=== PATIENT | female | born 1965 | race American Indian/Alaskan Native ===

== ENCOUNTER 2018-12-27 06:35 | Emergency (ER) | payer MEDICAID, OTHER ==
[2018-12-27 06:37] VITALS: BMI 21.6
--- NOTE | 2018-12-27 07:21 | ED PDOC ---
Arrival/HPI - General Chief Complaint: Medical Clearance Time Seen by Provider: 12/27/18 07:01 Historian: Patient, Police - History of Present Illness Narrative History of Present Illness (Text): 12/27/18 07:15 53 year old female, with no significant past medical history, presents to the ED brought in by police for medical clearance. Patient was reportedly found by passengers sleeping at [facility] this morning. Patient states she missed her last train and was sleeping at the station waiting for the next one to arrive. She notes using heroin last night at 6 pm and boarding the train afterwards but reports getting off on the wrong station. Patient endorses using a walker at baseline and denies any fall or trauma. Patient denies any pain or any somatic complaints. She denies any fever, chills, night sweats, chest pain, shortness of breath, abdominal pain, constipations, diarrhea, nausea, vomiting or any other complaints. Patient denies any suicidal ideation or homicidal ideation. She denies any history of depression. Time/Duration: Prior to Arrival Symptom Onset: Gradual Symptom Course: Unchanged Activities at Onset: Sleeping Context: Other (Train station) Past Medical History - Provider Review Nursing Documentation Reviewed: Yes - Reproductive Menopause: No - Psychiatric Hx Substance Use: Yes Family/Social History - Physician Review Nursing Documentation Reviewed: Yes Family/Social History: No Known Family HX Smoking Status: Smoker Currrent Status Unknown Hx Alcohol Use: No Hx Substance Use: Yes Allergies/Home Meds Allergies/Adverse Reactions: Allergies No Known Allergies Allergy (Verified 12/27/18 06:37) Home Medications: Home Meds Medication Instructions Recorded Confirmed Unobtainable 12/27/18 12/27/18 Review of Systems - Physician Review All systems were reviewed & negative as marked: Yes - Review of Systems Constitutional: absent: Fevers Eyes: absent: Vision Changes ENT: absent: Hearing Changes Respiratory: absent: SOB, Cough Cardiovascular: absent: Chest Pain Gastrointestinal: absent: Abdominal Pain, Constipation, Diarrhea, Nausea, Vomiting Genitourinary Female: absent: Dysuria, Urine Output Changes Musculoskeletal: absent: Back Pain, Neck Pain Skin: absent: Rash Neurological: absent: Headache, Dizziness, Focal Weakness Endocrine: absent: Diaphoresis Hemo/Lymphatic: absent: Easy Bleeding Psychiatric: absent: Anxiety, Depression, Suicidal Ideation Physical Exam Vital Signs Reviewed: Yes Vital Signs Temp Pulse Resp BP Pulse Ox 12/27/18 06:45 98.7 F 70 16 110/59 L 98 Temperature: Afebrile Blood Pressure: Normal Pulse: Regular Respiratory Rate: Normal Appearance: Positive for: Well-Appearing, Non-Toxic, Comfortable Pain Distress: None Mental Status: Positive for: Alert and Oriented X 3 - Systems Exam Head: Present: Atraumatic, Normocephalic Pupils: Present: PERRL Extroacular Muscles: Present: EOMI Conjunctiva: Present: Normal Ears: Present: Normal, NORMAL TM. No: Erythema Mouth: Present: Moist Mucous Membranes Pharnyx: Present: Normal. No: ERYTHEMA, EXUDATE Neck: Present: Normal Range of Motion. No: Meningeal Signs, MIDLINE TENDERNESS Respiratory/Chest: Present: Clear to Auscultation, Good Air Exchange. No: Respiratory Distress, Accessory Muscle Use Cardiovascular: Present: Regular Rate and Rhythm, Normal S1, S2. No: Murmurs Abdomen: No: Tenderness, Distention, Peritoneal Signs Back: Present: Normal Inspection. No: CVA Tenderness, Midline Tenderness Upper Extremity: Present: Normal Inspection. No: Cyanosis, Edema Lower Extremity: Present: Normal Inspection, NORMAL PULSES, Neurovascularly Intact (5/5 strength. Ambulates with a walker at baseline.). No: Edema Neurological: Present: GCS=15, CN II-XII Intact, Speech Normal Skin: Present: Warm, Dry, Normal Color. No: Rashes Psychiatric: Present: Alert, Oriented x 3, Normal Insight, Normal Concentration Medical Decision Making ED Course and Treatment: 12/27/18 07:23 Impression: 53 year old female presents to the ED accompanied by [employer]PD for medical clearance. Pt in NAD, without complaints, was given 0.4mg narcan in the field with pt being more awake. Pt notes snorting opiates yesterday but denies any IV injection. Pt at baseline uses a walker and denies any worsening pain or worsening difficulty walking. No signs of trauma, pt MAEW, no meningeal signs, no fever, chills or night sweats. No trauma or fall. No signs of trauma. Abd non-ttp, back non-ttp, extremities non-ttp. Plan: -- Diet -- Reassess and disposition Prior Visits: Notes and results from previous visits were reviewed. Progress Notes: 12/27/18 07:25 Medical clearance completed. At bedside, patient is resting comfortably and in no acute distress. She denies any trauma or any medical complaints. She denies any psychiatric complaints. Patient requesting something to eat. Diet ordered. Pupils remain unremarkable, no signs of etoh withdrawal acute OD. Endorsed to pt d/c opiate abuse- she notes that she will try. - Scribe Statement The provider has reviewed the documentation as recorded by the Scribe Maci Sanchez. All medical record entries made by the Scribe were at my direction and personally dictated by me. I have reviewed the chart and agree that the record accurately reflects my personal performance of the history, physical exam, medical decision making, and the department course for this patient. I have also personally directed, reviewed, and agree with the discharge instructions and disposition. Disposition/Present on Arrival - Present on Arrival Any Indicators Present on Arrival: No History of DVT/PE: No History of Uncontrolled Diabetes: No Urinary Catheter: No History of Decub. Ulcer: No History Surgical Site Infection Following: None - Disposition Have Diagnosis and Disposition been Completed?: Yes Diagnosis: Well adult health check, Opiate use Disposition: HOME/ ROUTINE Disposition Time: 07:29 Condition: STABLE Discharge Instructions (ExitCare): Drug Abuse and Drug Addiction (DC), Drug Abuse Treatment, Opioid Use Disorder Additional Instructions: SEE THE RESOURCES WE HAVE GIVEN YOU FOR DRUG ABUSE. TRY TO STOP USING OPIATES. ANCELMO THEODORE, thank you for letting us take care of you today. Your provider was Torey Delarosa and you were treated for MEDICAL CLEARANCE. The emergency medical care you received today was directed at your acute symptoms. If you were prescribed any medication, please fill it and take as directed. It may take several days for your symptoms to resolve. Return to the Emergency Department if your symptoms worsen, do not improve, or if you have any other problems. Please contact your doctor or call one of the physicians/clinics you have been referred to that are listed on the Patient Visit Information form that is included in your discharge packet. Bring any paperwork you were given at discharge with you along with any medications you are taking to your follow up visit. Our treatment cannot replace ongoing medical care by a primary care provider outside of the emergency department. Thank you for allowing the [facility] team to be part of your care today. If you had an X-Ray or CT scan: A Radiologist will review the ED reading if any change in treatment is needed we will contact you. If you had a blood, urine, or wound culture: It will take several days for the results, if any change in treatment is needed we will contact you. If you had an STI test: It will take 48 hours for the results. Please call after 1 week if you have not heard back. Referrals: [facility] [Outside] - Follow up with primary [facility] [place] [Outside] - Follow up with primary [facility] [Outside] - [place] up with [place] [facility] [place] - Follow up with primary Olivia Cabral MD [Medical Doctor] - Follow up with primary Forms: [facility] ([place]o)
[2018-12-27 10:25] VITALS: BP 124/72; PULSE 75; RESP 18; TEMP 98.2; O2SAT 97
== END 2018-12-27 10:25 | disposition home or self-care (01) ==
LOC: ED 06:35
DX: Z04.89 Encounter for examination and observation for other specified reasons (principal); F11.90 Opioid use, unspecified, uncomplicated